=== PATIENT | male | born 1990 | race Caucasian/White ===

== ENCOUNTER 2018-04-14 15:16 | Emergency (ER) | payer OTHER ==
[~2018-04-14] VITALS: Ht 172.7 cm; Wt 91.1 kg
[2018-04-14 15:51] LABS: HEMATOCRIT 43.9 % (38.0-50.0); HEMOGLOBIN 15.6 G/DL (12.5-16.6); MCH 30.8 PG (29.0-34.0); MCHC 35.5 G/DL (30.0-36.0); MCV 86.8 FL (86-99); PLATELET COUNT 268 K/uL (156-360); RBC DIS.WIDTH-CV 12.7 % (11.8-14.6); RED BLOOD COUNT 5.06 M/uL (4.00-5.50); WHITE BLOOD COUNT 6.1 K/uL (4.1-10.2)
[2018-04-14 16:00] LABS: CHLORIDE 104 mEq/L (99-109); POTASSIUM 3.8 mEq/L (3.7-5.4); SODIUM 139 mEq/L (136-147)
[2018-04-14 16:02] LABS: GLUCOSE 111 mg/dL (70-99)
[2018-04-14 16:05] LABS: CREATININE 0.9 mg/dL (0.6-1.3); GFR ESTIMATE (CALCULATED) > 59 mL/min/ (58.99-99999)
[2018-04-14 16:06] LABS: UREA NITROGEN (BUN) 12 mg/dL (9-23)
[2018-04-14 16:14] LABS: TROP-I INTERPRETATION NEGATIVE; TROPONIN-I < 0.01 ng/mL (0.0-0.30)
[2018-04-14 18:11] VITALS: BP 126/82
== END 2018-04-14 18:13 | disposition home or self-care (01) ==
LOC: EME 15:16
DX: E86.0 Dehydration (principal); R07.89 Other chest pain; R42 Dizziness and giddiness; K50.90 Crohn's disease, unspecified, without complications
CPT/HCPCS: 70450; 71046; 80048; 84484; 85027; 93005; 99281; 99285; J7030